=== PATIENT | female | born 2000 | race Caucasian/White ===

== ENCOUNTER 2021-08-24 21:21 | Emergency (ER) | payer OTHER ==
[~2021-08-24] VITALS: Ht 162.6 cm; Wt 72.6 kg
--- NOTE | 2021-08-24 22:06 | NUR ---
PT BIBS FOR C/O UPPER MID BACK PAIN SINCE 99. PT A/OX4. TOLERATING R/A WELL AT 98%. PT DENIES PREVIOUS TRAUMA TO BACK. PT AMB WITH STEADY GAIT.
[2021-08-24] MEDS ORDERED: KETOROLAC TROMETHAMINE INJ 30 MG/ML VIAL IM ONE (22:30)
[2021-08-24] MEDS ORDERED: CYCLOBENZAPRINE 10 MG TABLET PO ONE (22:30)
[2021-08-24] MEDS ORDERED: KETOROLAC TROMETHAMINE INJ 30 MG/ML VIAL ONE (22:32)
[2021-08-24] MEDS ORDERED: CYCLOBENZAPRINE 10 MG TABLET ONE (22:32)
--- NOTE | 2021-08-24 22:37 | NUR ---
INSURANCE ACCOUNT MANAGER AT PT'S BEDSIDE
[2021-08-25] MEDS ORDERED: HYDROCODONE/APAP 5/325MG TABLET PO ONE ×2 (00:30→02:30)
--- NOTE | 2021-08-25 00:40 | NUR ---
PT RETURNED TO ER BED [address]
[2021-08-25] MEDS ORDERED: HYDR-4209 PO (02:19)
--- NOTE | 2021-08-25 02:29 | NUR ---
Patient discharged to home in stable condition. Written and verbal after care instructions given. Patient verbalizes understanding of instruction.
[2021-08-25 02:30] VITALS: BP 122/80
== END 2021-08-25 02:30 | disposition home or self-care (01) ==
LOC: ER 21:26
DX: M54.6 Pain in thoracic spine (principal)
CPT/HCPCS: 71045; 71250; 96372; 99284; J1885